=== PATIENT | female | born 1945 | race Caucasian/White ===

== ENCOUNTER → 2020-11-22 | Outpatient (CLI) | payer MEDICARE ==
[~2020-11-22] MED LIST: ATEN25 PO; BACL10 PO; CALCIUM 600+D31 EACH PO; CHOL10002 PO; CITA20 PO; Fluvoxamine Ma100 MG PO; HYDCHL25 PO; LIDO5TP TOP; Norco 5-325 Ta1 EACH PO; PRAM.5 PO
== END | disposition home or self-care (01) ==
LOC: LAB SHORT 11:30 → LAB 11:30
DX: R23.4 Changes in skin texture (principal)
CPT/HCPCS: 87210

== ENCOUNTER 2023-12-27 16:53 | Inpatient (IN) | payer MEDICARE ==
[~2023-12-27] VITALS: Ht 170.2 cm; Wt 63.8 kg
[~2023-12-27 16:53] MED LIST changes: +ACET325 PO; +BUSPIRONE HCL5 M6 PO; +MELATONIN5 M1 PO; +METOPROLOL SUCC25 MG PO
[2023-12-27 18:14] LABS: BASOPHILS ABSOLUTE AUTO 0.03 K/mm3 (0.00-0.23); BASOPHILS PERCENT AUTO 0 % (0-2); EOSINOPHILS ABSOLUTE AUTO 0.01 K/mm3 (0.00-0.68); EOSINOPHILS PERCENT AUTO 0 % (0-6); Hematocrit 38.2 % (33.0-51.0); IMMATURE GRAN ABSOLUTE AUTO 0.02 K/mm3 (0.00-0.10); IMMATURE GRAN PERCENT AUTO 0 % (0-1); LYMPHOCYTES ABSOLUTE AUTO 0.95 K/mm3 (0.84-5.20); LYMPHOCYTES PERCENT AUTO 13 % (21-46); MONOCYTES ABSOLUTE AUTO 0.39 K/mm3 (0.16-1.47); MONOCYTES PERCENT AUTO 5 % (4-13); Mean Corpuscular Volume 91 fL (80-100); Mean Platelet Volume 8.9 fL (9.1-12.4); NEUTROPHILS PERCENT AUTO 81 % (41-73); Platelet Count 285 K/mm3 (150-400); RDW Coefficient Variation 12.6 % (11.7-14.2); Red Blood Cell Count 4.19 M/mm3 (3.80-5.20)
[2023-12-27 18:35] LABS: Albumin, Blood 3.8 g/dL (3.4-5.0); Albumin/Globulin Ratio 1.1 (0.8-1.8); Bilirubin, Total 0.9 mg/dL (0.1-1.0); Globulin, Blood 3.4 g/dL (2.2-4.0); Magnesium, Blood 1.8 mg/dL (1.6-2.4); Phosphorus, Blood 2.1 mg/dL (2.5-4.9); Potassium, Blood 3.4 mmol/L (3.5-5.5); Total Protein, Blood 7.2 g/dL (6.4-8.2)
[2023-12-27 20:39] LABS: Source, Urine Clean Catch
[2023-12-27 20:44] LABS: Bilirubin, Urine Neg (Neg); Blood, Urine 1+ (Neg); Glucose Qualitative, Urine Neg (Neg); Ketones, Urine 3+ (Neg); Leukocyte Esterase, Urine 3+ (Neg); Nitrite, Urine Neg (Neg); Protein, Urine Neg (Neg); Urobilinogen, Urine NORM (Normal)
[2023-12-27 20:46] LABS: Appearance, Urine Hazy (Clear); Color, Urine Yellow (P-Yellow)
[2023-12-27 20:54] LABS: Amorphous Light (0-Heavy); Bacteria Many /hpf; Squamous Epithelial Cells Few /hpf (Few)
[2023-12-27] MEDS ORDERED: CefTRIAXone Sodium 1,000 MG in NS 100 ML IV ONE (21:10)
[2023-12-27 21:45] LABS: Free Thyroxine 1.04 ng/dL (0.70-1.60)
[2023-12-27 21:47] LABS: Thyroid Stimulating Hormone 7.08 uIU/mL (0.360-4.800)
[2023-12-28] MEDS ORDERED: Acetaminophen 325 MG TABLET PO PRN (01:40)
[2023-12-28] MEDS ORDERED: Baclofen 10 MG Tab PO PRN (01:40)
[2023-12-28] MEDS ORDERED: Potassium Chloride 10 Meq Tablet SA PO ONE (02:00)
[2023-12-28] MEDS ORDERED: Melatonin 5 MG Tablet PO ONE (02:00)
[2023-12-28] MEDS ORDERED: Metoprolol Succinate 25 MG TABCR PO SCH (02:00)
[2023-12-28 02:37] VITALS: BP 112/85
[2023-12-28] MEDS ORDERED: Potassium Phosphate Dibasic 15 MM in Dextrose 5% 250 ML IV ONE (03:30)
[2023-12-28] MEDS ORDERED: BusPIRone HCl 5 MG Tab PO PRN (03:35)
[2023-12-28] MEDS ORDERED: NS 1,000 ML IV SCH (04:00)
[2023-12-28 06:29] LABS: BASOPHILS ABSOLUTE AUTO 0.02 K/mm3 (0.00-0.23); BASOPHILS PERCENT AUTO 0 % (0-2); EOSINOPHILS ABSOLUTE AUTO 0.01 K/mm3 (0.00-0.68); EOSINOPHILS PERCENT AUTO 0 % (0-6); Hematocrit 34.6 % (33.0-51.0); Hemoglobin 11.8 g/dL (11.5-16.0); IMMATURE GRAN ABSOLUTE AUTO 0.03 K/mm3 (0.00-0.10); IMMATURE GRAN PERCENT AUTO 0 % (0-1); LYMPHOCYTES ABSOLUTE AUTO 0.99 K/mm3 (0.84-5.20); LYMPHOCYTES PERCENT AUTO 14 % (21-46); MONOCYTES ABSOLUTE AUTO 0.46 K/mm3 (0.16-1.47); MONOCYTES PERCENT AUTO 7 % (4-13); Mean Corpuscular HGB 30.6 pg (26.0-34.0); Mean Corpuscular HGB Conc 34.1 g/dL (31.5-36.5); Mean Corpuscular Volume 90 fL (80-100); Mean Platelet Volume 9.9 fL (9.1-12.4); NEUTROPHILS ABSOLUTE AUTO 5.45 K/mm3 (1.96-9.15); NEUTROPHILS PERCENT AUTO 78 % (41-73); Platelet Count 260 K/mm3 (150-400); RDW Coefficient Variation 12.4 % (11.7-14.2); RDW Standard Deviation 40.6 fL (35.1-46.3); Red Blood Cell Count 3.85 M/mm3 (3.80-5.20); White Blood Cell Count 6.96 K/mm3 (4.00-11.30)
[2023-12-28 07:00] LABS: Albumin, Blood 3.4 g/dL (3.4-5.0); Albumin/Globulin Ratio 1.1 (0.8-1.8); Bilirubin, Total 1.1 mg/dL (0.1-1.0); Bun/Creatinine Ratio 19.3 (12.0-20.0); Calcium, Blood 8.8 mg/dL (8.5-10.1); Creatinine, Blood 0.88 mg/dL (0.40-1.00); Globulin, Blood 3.2 g/dL (2.2-4.0); Total Protein, Blood 6.6 g/dL (6.4-8.2)
[2023-12-28 07:54] VITALS: BP 105/47
[2023-12-28] MEDS ORDERED: Citalopram Hydrobromide 20 MG Tab PO SCH (09:00)
[2023-12-28] MEDS ORDERED: Cholecalciferol 1000 Unit Tablet (=25MCG) PO SCH (09:00)
[2023-12-28] MEDS ORDERED: HydroCHLOROthiazide 25 mg Tab PO SCH (09:00)
[2023-12-28] MEDS ORDERED: Misc. Tablet PO SCH (09:00)
[2023-12-28 15:35] VITALS: BP 103/63
--- NOTE | 2023-12-28 19:21 | NUR ---
SHIFT SUMMARY- PT ALERT AND ORIENTED TO SELF AND FAMILY NOT TO SITUATION. SHE IS STEADY ON HER FEET AND INDEPENDENT IN THE ROOM. ALARMS NOT SET IT SEEMS THEY WOULD AGGITATE HER. AT THIS TIME SHE IS PLEASENTLY CONFUSED. PT HAD A SHOWER TODAY. SHE WANTED TO GO HOME HOWEVVER DR HDZ SAID SHE NEEDS TO STAY A COUPLE MORE DAYS FOR IV ANTIBIOTICS. PT SITTING UP IN BED, CALL LIGHT IN REACH NO S&S OF DISTRESS NOTED.
[2023-12-28 20:36] VITALS: BP 111/57
[2023-12-28] MEDS ORDERED: CefTRIAXone Sodium 1,000 MG in NS 100 ML IV SCH (21:00)
[2023-12-29 03:27] VITALS: BP 96/50
[2023-12-29 07:11] LABS: BASOPHILS ABSOLUTE AUTO 0.04 K/mm3 (0.00-0.23); BASOPHILS PERCENT AUTO 1 % (0-2); EOSINOPHILS PERCENT AUTO 2 % (0-6); Hematocrit 39.2 % (33.0-51.0); IMMATURE GRAN ABSOLUTE AUTO 0.03 K/mm3 (0.00-0.10); IMMATURE GRAN PERCENT AUTO 1 % (0-1); LYMPHOCYTES ABSOLUTE AUTO 2.31 K/mm3 (0.84-5.20); LYMPHOCYTES PERCENT AUTO 39 % (21-46); MONOCYTES ABSOLUTE AUTO 0.67 K/mm3 (0.16-1.47); MONOCYTES PERCENT AUTO 11 % (4-13); Mean Corpuscular HGB 30.6 pg (26.0-34.0); Mean Corpuscular HGB Conc 33.2 g/dL (31.5-36.5); Mean Corpuscular Volume 92 fL (80-100); NEUTROPHILS ABSOLUTE AUTO 2.72 K/mm3 (1.96-9.15); NEUTROPHILS PERCENT AUTO 46 % (41-73); Platelet Count 275 K/mm3 (150-400); RDW Coefficient Variation 12.8 % (11.7-14.2); RDW Standard Deviation 43.3 fL (35.1-46.3); Red Blood Cell Count 4.25 M/mm3 (3.80-5.20); White Blood Cell Count 5.87 K/mm3 (4.00-11.30)
[2023-12-29 07:29] VITALS: BP 117/71
[2023-12-29 07:32] LABS: Bun/Creatinine Ratio 17.3 (12.0-20.0); Calcium, Blood 9.3 mg/dL (8.5-10.1); Creatinine, Blood 1.04 mg/dL (0.40-1.00); Potassium, Blood 3.6 mmol/L (3.5-5.5)
--- NOTE | 2023-12-29 12:01 | NUR ---
Pt. is awake in bed and welcomesmy visit. Pt. is pleasant. Facilitated a life review and considered matters of blank and belief. Pt. displayed evidence of awareness and engagement. Took Pt. by the hand and prayed with Pt. Pt. verbalized gratitude for the spiritual care visit and also verbalized that our Prayer brought tears to her eyes.
[2023-12-29] MEDS ORDERED: CefTRIAXone Sodium 1,000 MG in NS 100 ML IV ONE (12:35)
[2023-12-29] MEDS ORDERED: CEFD300 PO (14:50)
--- NOTE | 2023-12-29 15:36 | NUR ---
DISCHARGE NOTE- PT WAS GIVEN VERBAL AND WRITTEN DISCHARGE INSTRUCTIONS AND ACKNOWLEDGED UNDERSTANDING OF THEM. HER FRIEND WAS HERE TO TAKE HER HOME BUT LEFT PRIRO TO DC INSTRUCTIONS. MEDS FAXED TO [facility] PER PT REQUEST. PT ESCORTED OUT BY [employer] REPAIRMAN VIA WC, NO S&S OF DISTRESS NOTED AT THE TIME OF DISCHARGE. IV DC'D PRIOR TO DISCHARGE.
== END 2023-12-29 15:21 | disposition home or self-care (01) | DRG 689 ==
LOC: ER 16:53 → MEDS 16:54
PROVIDERS: Family Medicine; Internal Medicine; Student in an Organized Health Care Education/Training Program; ADMIT Student in an Organized Health Care Education/Training Program
DX: N39.0 Urinary tract infection, site not specified (principal); G93.41 Metabolic encephalopathy; E87.1 Hypo-osmolality and hyponatremia; E87.6 Hypokalemia; E83.39 Other disorders of phosphorus metabolism; F42.9 Obsessive-compulsive disorder, unspecified; I10 Essential (primary) hypertension; F41.0 Panic disorder [episodic paroxysmal anxiety]; Z60.2 Problems related to living alone; Z88.8 Allergy status to other drugs, medicaments and biological substances; Z79.899 Other long term (current) drug therapy; B96.20 Unspecified Escherichia coli [E. coli] as the cause of diseases classified elsewhere
CPT/HCPCS: 36415; 70450; 80048; 80053; 81001; 82306; 83735; 83970; 84100; 84132; 84439; 84443; 85025; 87077; 87086; 87186; 96365; 96375; 99285-25; A9270; G0378; J0696; J7060